=== PATIENT | male | born 1960 | race American Indian/Alaskan Native ===

== ENCOUNTER 2020-04-08 19:28 | Emergency (ER) | payer OTHER ==
[~2020-04-08] VITALS: Ht 172.7 cm; Wt 81.7 kg
[2020-04-08] MEDS ORDERED: PREDNISONE20 MG PO (20:04)
[2020-04-08] MEDS ORDERED: BENADRYL25 MG PO (20:04)
== END 2020-04-08 20:30 | disposition home or self-care (01) ==
LOC: ED 19:28
DX: S90.561A Insect bite (nonvenomous), right ankle, initial encounter (principal); F17.200 Nicotine dependence, unspecified, uncomplicated; W57.XXXA Bitten or stung by nonvenomous insect and other nonvenomous arthropods, initial encounter
CPT/HCPCS: 90471; 90715; 99282-25

== ENCOUNTER 2020-04-11 19:53 | Emergency (ER) | payer OTHER ==
[~2020-04-11] VITALS: Ht 172.7 cm; Wt 81.7 kg
[~2020-04-11 19:53] MED LIST: BENADRYL25 MG PO; PREDNISONE20 MG PO
--- OUTSIDE RECORDS SUMMARY | 2020-04-11 19:56 | XMS ---
PreManage Notification: ANDREA AMEZCUA Security Short Order Cook Events No recent Security Events currently on file CRITERIA MET - [facility] - 2 Visits in 30 Days CARE PROVIDERS There are no care providers on record at this time. Rick has no Care Guidelines for this patient. Jesus VISIT COUNT (12 MO.) [address] [facility] TOTAL 2 NOTE: Visits indicate total known visits. ED/C VISIT TRACKING (12 MO.) 04/11/2020 19:53 [facility] [place] TYPE: Emergency COMPLAINT: - ANIMAL BITE 04/08/2020 19:[address] [facility] [place] TYPE: Emergency COMPLAINT: - BUG BITE DIAGNOSES: - Nicotine dependence, unspecified, uncomplicated - Insect bite (nonvenomous), right ankle, initial encounter - Bitten or stung by nonvenomous insect and other nonvenomous a INPATIENT VISIT TRACKING (12 MO.) No inpatient visits to display in this time frame [email or web address]
== END 2020-04-11 20:20 | disposition home or self-care (01) ==
LOC: ED 19:53
DX: T63.441A Toxic effect of venom of bees, accidental (unintentional), initial encounter (principal); F17.200 Nicotine dependence, unspecified, uncomplicated
CPT/HCPCS: 99282